=== PATIENT | male | born 1960 | race African-American/Black ===

== ENCOUNTER 2016-05-01 12:32 | Emergency (ER) | payer MEDICAID ==
[2016-05-01 12:32] VITALS: BMI 25.2
--- NOTE | 2016-05-01 13:07 | EDPRACDOC ---
- General Information Stated Complaint: NEUROPATHY PAIN Time Seen by Provider: 05/01/16 13:04 Information Source: Patient Home Medications: Home Medications Aspirin [Adult Low Dose Aspirin EC] 81 mg PO DAILY 06/20/12 Amlodipine [Norvasc] 10 mg PO DAILY #30 tab 11/27/15 Atorvastatin Calcium [Lipitor] 20 mg PO HS #30 tablet 11/27/15 Gabapentin [Neurontin] 300 mg PO BID #60 capsule 11/27/15 Linagliptin [Tradjenta] 5 mg PO DAILY #30 tablet 11/27/15 Lisinopril [Zestril] 20 mg PO DAILY #30 tablet 11/27/15 Magnesium [Magnesium Oxide] 400 mg PO BID #60 tablet 11/27/15 Melatonin 1 mg PO HS #30 tablet 11/27/15 Metformin HCl 500 mg PO BID #60 tablet 11/27/15 Pantoprazole Sodium [Protonix] 40 mg PO DAILY #30 tablet. 11/27/15 Risperidone [Risperdal] 3 mg PO HS #30 tablet 11/27/15 Trihexyphenidyl [Artane] 2 mg PO BID #60 tablet 11/27/15 Metformin HCl 500 mg PO BID #60 tab 02/28/16 Gabapentin 300 mg PO TID #30 capsule 03/09/16 Naproxen 500 mg PO BID PRN #30 tablet. 03/09/16 Gabapentin [Neurontin] 300 mg PO BID #21 cap 04/03/16 Gabapentin 300 mg PO TID #60 capsule 05/01/16 Allergies/Adverse Reactions: Allergies Allergy/AdvReac Type Severity Reaction Status Date / Time chlorpromazine HCl Allergy Severe Anxiety Verified 04/03/16 15:08 [From Thorazine] haloperidol [From Haldol] Allergy See Verified 04/03/16 15:08 Comments - History of Present Illness HPI: PT STATES OUT OF GABAPENTIN FOR DIABETIC NEUROPATHY Context: Reports: Ran out of Medication Medication for: Reports: Pain (DIABETIC NEUROPATHY) Pain: Reports: Mild ED Past Medical History - History Reviewed Yes Nurses notes reviewed and agree except as marked Travel Outside of [place] in the Last 3 Months?: No - Patient Medical History Cardiac History: Reports: Hypertension, Hypercholesterolemia Respiratory History: Reports: Asthma, COPD GI/ History: Reports: Gastroesophageal Reflux Psychological History: Reports: Depression, Anxiety, Schizophrenia, Bipolar Disorder. Denies: Substance Use Disorder Systemic History: Reports: Diabetes (NIDDM). Denies: Cancer Additional Past Medical History: DIABETIC NEUROPATHY Surgical History: Reports: Tonsillectomy/Adnoidectomy - Family Medical History Reports: Hypertension, Diabetes, Cancer, Cardiac Disorders - Social Medical History Smoking Status: Heavy tobacco smoker (5 or more cigarettes/day or daily pipe/ cigar) Social History: Reports: Marijuana Use. Denies: Substance Use Disorder ETOH: None Substance Abuse: None Lives With: Other Lives In: Home EDM Review of Systems - Review of Systems ROS Negative Except as Marked: Yes All systems reviewed and were negative except as marked Constitutional: No Symptoms Reported. negative: Fever, Chills, Weakness, Fatigue, Loss of Appetite Eyes: No Symptoms Reported. negative: Redness, Blurred Vision, Double Vision, Discharge, Pain, Light Sensitive, Photophobia Ears: No Symptoms Reported. negative: Pain, Hearing Loss, Drainage, Ear Pulling Throat: No Symptoms Reported. negative: Pain, Swelling Nose: No Symptoms Reported. negative: Congestion, Bleeding, Discharge, Injection, Swelling, Deformity, Ecchymosis, Tender, Abrasion, Laceration Mouth: No Symptoms Reported. negative: Pain, Drooling Respiratory: No Symptoms Reported. negative: Cough, Brassy Cough, Barky Cough, Shortness of Breath, Wheezing, Hemoptysis Cardiovascular: No Symptoms Reported. negative: Chest Pain, Palpitations, Syncope, Edema, Orthopnea, PND, Skin Mottling, Cyanosis Gastrointestinal: No Symptoms Reported. negative: Pain, Constipation, Nausea, Vomiting, Diarrhea, Melena, Formula Intolerance Genitourinary: No Symptoms Reported. negative: Dysuria, Hematuria, Frequency, Discharge, Bleeding, Testicular Pain, Neurological: Other (NEUROPATHIC PAIN IN LEGS SECONDARY TO DIABETES). negative : Dizziness, Gait Difficulty, Headache, Numbness, Seizure, Speech Difficulty, Weakness Musculoskeletal: No Symptoms Reported. negative: Neck, Chestwall, Ribs, Back, Shoulder, Arm, Elbow, Forearm, Wrist, Hand, Pelvis, Hip, Femur, Knee, Leg, Ankle , Foot Integumentary: No Symptoms Reported. negative: Itching, Rash, Bruising, Wound Allergic/Immunologic: No Symptoms Reported. negative: Hives, Itching Hematologic: No Symptoms Reported. negative: Lymphadenopathy, Easy Bruising, Easy Bleeding Endocrine: No Symptoms Reported. negative: Weight Gain, Weight Loss Psychiatric: No Symptoms Reported. negative: Anxiety, Depression, Hallucinations, Insomnia, Suicidal - Physical Exam Constitutional: Alert (Awake), No apparent distress Oriented to: Time, Person, Place Last recorded Vital Signs: Oxygen Pulse Oxygen Saturation O2 Device Oxygen Flow Rate Fraction of Inspired Oxygen ( FIO2) - HEENT Head: Normal ( normocephalic) Eye Exam: Normal (PERRL, EOMI, Sclera white) Oropharynx: Normal (Pharynx:Moist without exudate,Gums-no swelling) Tympanic Membrane: Normal ENT EAC: Normal TMJ: Normal Nose: No Symptoms Reported (septum midline) Neck: Normal (FROM, trachea at midline) - Respiratory/Cardiovascular Respiratory: Normal - CTA (BBS clear to auscultation without adventitious sounds ) Cardiovascular: Normal (RRR without murmur, gallop or rub) - GI Auscultation: Normal (NABS) Palpation: Normal (Soft,No rebound or guarding, non distended) Tenderness: Non tender Gamboa's Sign: Negative - Musculoskeletal Back: Normal (Non-Tender) Extremities: Normal (Normal tone, Pulses 2+ No cyanosis or edema, FROM) - Integumentary Skin: Normal, Warm, Dry Lymphatics: Normal (no adenopathy) - Neurologic Memory Impaired: Normal Motor Function: Normal (Normal tone, Pulses 2+ No cyanosis or edema, FROM) Cranial Nerve: Normal (CN II-X11 intact sensation, strength 5/5) Cerebellar: Normal Mood Description: Normal Perception: Normal - Differential Diagnosis Medication Refill - Results POC Capillary Glucose 336 MG/DL (70-99) H 05/01/16 12:36 Lab Results 05/01/16 12:36 POC Capillary Glucose 336 H Decision Time to Discharge: 13:06 - Departure Disposition: Home Condition: Stable Final Diagnosis: Medication refill Instructions: Medicine Refill (ED) Education/Counseling Given To: Patient Education/Counseling Given Regarding: Diagnosis, Treatment, Prognosis, Follow Up Referrals: None,No Provider [Primary Care Provider] - One Week Prescriptions: Gabapentin 300 mg PO TID #60 capsule
[2016-05-01 13:24] VITALS: BP 175/95; PULSE 73; TEMP 97.9
== END 2016-05-01 13:25 | disposition home or self-care (01) ==
LOC: EDMC 12:32
DX: E11.40 Type 2 diabetes mellitus with diabetic neuropathy, unspecified (principal)
CPT/HCPCS: 82962; 99282